=== PATIENT | female | born 1950 | race Caucasian/White ===

== ENCOUNTER 2016-07-24 11:30 | Inpatient (IN) | payer MEDICARE ==
[2016-07-26] MEDS ORDERED: ceFAZolin 1 GM in NORMAL SALINE MINI-BAG+ 100 ML IV ONE (13:09)
[2016-07-26] MEDS ORDERED: TRANEXAMIC ACID 1,000 MG in NORMAL SALINE 100 ML IV SCH (14:00)
[2016-07-29] MEDS ORDERED: TRANEXAMIC ACID 1,000 MG/10 ML VIAL IV ONE ×2 (06:53→13:00)
[2016-07-29] MEDS ORDERED: ceFAZolin 1 GM/10 ML VIAL ONE (06:53)
[2016-07-29] MEDS ORDERED: TRANEXAMIC ACID 1,000 MG in NORMAL SALINE 100 ML IV ONE ×2 (07:02→09:09)
[2016-07-29] MEDS ORDERED: LIDOCAINE HCL 1% 20 ML VIAL SUBCUT ONE ×2 (07:02→09:09)
[2016-07-29] MEDS ORDERED: METOCLOPRAMIDE HCL 10 MG/2 ML VIAL IV ONE (07:02)
[2016-07-29] MEDS ORDERED: PHENYLEPHRINE HCL 10,000 MCG/ML VIAL ONE (07:05)
[2016-07-29] MEDS ORDERED: FENTANYL 100 MCG/2 ML VIAL ONE (07:05)
[2016-07-29] MEDS ORDERED: ROCURONIUM BROMIDE 50 MG/5 ML VIAL IV ONE (07:06)
[2016-07-29] MEDS ORDERED: SUCCINYLCHOLINE CHLORIDE 200 MG/10 ML VIAL ONE (07:06)
[2016-07-29] MEDS ORDERED: TETRACAINE HCL 1% 20 MG/2 ML AMP ONE (07:06)
[2016-07-29] MEDS ORDERED: MORPHINE SULFATE/PF 10 MG/10 ML VIAL ONE ×2 (07:06→07:11)
[2016-07-29] MEDS ORDERED: EPHEDrine SULFATE 50 MG/ML VIAL ONE (07:06)
[2016-07-29] MEDS ORDERED: KETOROLAC TROMETHAMINE 30 MG/ML VIAL ONE (07:09)
[2016-07-29] MEDS ORDERED: ROPIVACAINE HCL 0.5% 30 ML ONE (07:10)
[2016-07-29] MEDS ORDERED: BACITRACIN 50,000 UNITS VIAL IM ONE (07:10)
[2016-07-29] MEDS ORDERED: BUPIVACAINE/EPI 0.25% 1 VIAL VIAL ONE (07:10)
[2016-07-29] MEDS ORDERED: NORMAL SALINE 10 ML VIAL ONE (07:10)
[2016-07-29] MEDS ORDERED: NORMAL SALINE FLUSH 30 ML ONE (07:11)
[2016-07-29] MEDS ORDERED: FAMOTIDINE IN SALINE, ISO-OSM 20 MG/50 ML PIGGYBACK IV SCH (07:15)
[2016-07-29] MEDS ORDERED: ACETAMINOPHEN 1,000 MG/100 ML VIAL IV SCH (07:15)
[2016-07-29] MEDS: MIDAZOLAM HCL 2 MG/2 ML SYR IV ONE ×2 (07:23→07:55)
[2016-07-29] MEDS ORDERED: MIDAZOLAM HCL 2 MG/2 ML VIAL ONE (07:31)
[2016-07-29] MEDS ORDERED: FAMOTIDINE IN SALINE, ISO-OSM 20 MG/50 ML PIGGYBACK IV ONE ×2 (08:00→09:09)
[2016-07-29] MEDS ORDERED: LACTATED RINGERS 1,000 ML IV SCH ×3 (08:00→10:00)
[2016-07-29] MEDS ORDERED: ACETAMINOPHEN 1,000 MG/100 ML VIAL IV ONE ×2 (08:00→09:09)
[2016-07-29] MEDS ORDERED: NALOXONE HCL 0.4 MG/ML VIAL IV PRN ×6 (09:09→11:27)
[2016-07-29] MEDS ORDERED: HYDROmorphone HCL 1 MG/ML SYR IV PRN (09:09)
[2016-07-29] MEDS ORDERED: NALBUPHINE HCL 10 MG/ML AMP IV PRN ×2 (09:09→11:27)
[2016-07-29] MEDS ORDERED: FENTANYL 100 MCG/2 ML VIAL IV PRN (09:09)
[2016-07-29] MEDS ORDERED: ONDANSETRON HCL 4 MG/2 ML VIAL IV PRN ×2 (09:09→11:27)
[2016-07-29] MEDS ORDERED: METOCLOPRAMIDE HCL 10 MG/2 ML VIAL IV PRN (09:09)
[2016-07-29] MEDS ORDERED: DIPHENHYDRAMINE 50 MG/ML VIAL IV PRN ×2 (09:09→11:27)
[2016-07-29] MEDS ORDERED: DIPHENHYDRAMINE 25 MG CAPSULE PO PRN (09:09)
[2016-07-29] MEDS ORDERED: MORPHINE SULFATE 10 MG/ML SYR IV PRN (09:09)
[2016-07-29] MEDS ORDERED: TRANEXAMIC ACID 1,000 MG in NORMAL SALINE MINI-BAG+ 100 ML IV ONE (13:00)
[2016-07-29] MEDS: TRANEXAMIC ACID 1,000 MG in NORMAL SALINE MINI-BAG+ 100 ML IV ONE ×2 (13:53→18:45)
[2016-07-29] MEDS: ceFAZolin 1 GM in NORMAL SALINE MINI-BAG+ 100 ML IV SCH ×2 (15:10→21:06)
[2016-07-29] MEDS: DIPHENHYDRAMINE 25 MG CAPSULE PO PRN ×2 (15:21→23:33)
[2016-07-29] MEDS ORDERED: BENZOCAINE/MENTHOL 1 EACH LOZENGE PO ONE ×2 (15:32→18:32)
--- NOTE | 2016-07-29 16:48 | OPERATIVE REPORT ---
DATE OF SURGERY: 07/29/16 SURGEON: Uvaldo Villafana DO ANESTHESIA: Spinal plus sedation. PREOPERATIVE DIAGNOSIS: Right knee osteoarthritis. POSTOPERATIVE DIAGNOSIS: Right knee osteoarthritis. OPERATION PERFORMED: Right total knee arthroplasty. SPECIMENS REMOVED: Diseased bone and soft tissues. ESTIMATED BLOOD LOSS: Minimal. COMPLICATIONS: None. TOTAL TOURNIQUET TIME: 83 minutes. PROCEDURE NOTE: The patient was brought to the operating room suite and after administration of spinal anesthesia the right lower extremity was prepped and draped in a sterile fashion. A well padded tourniquet was applied to the right proximal thigh. A midline longitudinal incision was made over the aspect of the right knee. Dissection was carried down to the extensor mechanism. A medial parapatellar arthrotomy was performed and soft tissue releases were performed along the deep MCL as the patient had a varus knee. The meniscus, portion of the anterior fat pad and the cruciate ligaments were also removed for visualization and instrumentation purposes. A series of bone defects were made on both the tibia and femur and a spacer was placed between the tibia and femur. An additional 2 mm of tibia was cut for the proper balancing of the knee. The remainder of the bone cuts and bone defects were made including chamfer cuts and tibia intramedullary cuts. These bone defects and bone cuts were made utilizing intramedullary femoral guide and extramedullary tibial with the appropriate angles dialed into the jigs. The trial implants were inserted, and the knee was taken through a full range of motion and was noted to be exceptionally stable and well balanced in both flexion and extension and toggle with varus and valgus. The patellar defects were made and the patellar button was placed. The prosthetic trial implants were removed, and the knee was copiously irrigated with bacitracin infused with normal saline. The patient did receive 1 gram of tranexamic acid intraoperatively and also received the cocktail containing 150 mg of ropivacaine, 15 mg of Ketoralac, 0.3 mg epinephrine, and 4 mg morphine sulfate in total volume of 60 mL, making up the difference utilizing 0.9% normal saline for a total volume of 60 mL. The knee was again copiously irrigated with bacitracin infused with normal saline and tamped dry with new lap sponges and the cement was interdigitated in the bone through finger impaction, followed by implantation and impaction of the final prosthetic implants. Excess cement was removed, and the knee was taken up into full extension with a 10 mm spacer inserted. The cement was allowed to harden and the tourniquet was let down. Any small bleeders were cauterized with an electrocautery device. A Hemovac drain was also inserted into the knee and left on suction. The knee was closed in a stepwise fashion in flexion utilizing #2 Fiberwire intermittently with #1 Vicryl pop-offs, followed by #1, 0 Vicryl, 2-0 Vicryl with a subcutaneous closure utilizing 3-0 Monocryl at the level of the skin, followed by Dermabond on the skin, followed by application of impervious Aquacel dressing. Patients knee was then wrapped with an Justin bandage and a Cryo -Cuff was applied. She was transferred from the operating room suite to the recovery room in stable condition. ORTHOPEDIC IMPLANTS 1. Biomet cobalt bone cement high viscosity with Gentamicin, Maria Teresa persona femoral component size 7 narrow cemented posterior stabilize. 2. Biomet Maria Teresa persona polyethylene button 32 mm in diameter x 8.5 mm thickness. 3. Biomet persona natural tibial cemented 5 degree stem right size C. 4. Biomet Maria Teresa persona Vivacit-E highly cross linked polyethylene articular surface fixed bearing posterior stabilized right tibial component 10 mm height. [facility]
[2016-07-29] MEDS: DOCUSATE SODIUM 100 MG CAPSULE PO SCH (20:53)
[2016-07-29] MEDS: ACETAMINOPHEN 325 MG TABLET PO PRN (20:53)
[2016-07-29] MEDS: ASCORBIC ACID 500 MG TABLET PO SCH (20:53)
[2016-07-29] MEDS: HYDROcodone/APAP 5/325 MG 1 TAB TABLET PO PRN (21:06)
[2016-07-29] MEDS: BENZOCAINE/MENTHOL 1 EACH LOZENGE PO PRN (23:29)
[2016-07-30] MEDS: BENZOCAINE/MENTHOL 1 EACH LOZENGE PO PRN ×2 (02:04→03:40)
[2016-07-30] MEDS: DEXTROSE 5% LACTATED RINGERS 1,000 ML IV SCH ×2 (02:04→19:13)
[2016-07-30] MEDS: HYDROcodone/APAP 5/325 MG 1 TAB TABLET PO PRN ×4 (02:28→18:50)
[2016-07-30] MEDS: DIPHENHYDRAMINE 25 MG CAPSULE PO PRN ×2 (04:27→08:34)
[2016-07-30] MEDS: ceFAZolin 1 GM in NORMAL SALINE MINI-BAG+ 100 ML IV SCH (05:51)
[2016-07-30 06:43] LABS: EOSINOPHILS 0.1 % (0.0-6.0); HEMOGLOBIN 9.9 g/dL (12.0-16.0); LYMPHOCYTES 7.6 % (20.0-40.0); LYMPHOCYTES# 0.7 X 10^3uL (0.8-3.8); MEAN CELL VOLUME 84.5 fL (80.0-100.0); MEAN CORPUS. HGB CONCENTRATION 34.3 g/dL (32.0-36.0); MONOCYTES 12.6 % (2.0-10.0); MONOCYTES# 1.1 X 10^3uL (0.2-1.0); NEUTROPHILS 79.7 % (54.0-75.0); NEUTROPHILS# 6.8 X 10^3uL (2.6-6.7); RED BLOOD COUNT 3.43 X 10^6uL (4.20-6.10); RED CELL DISTRIBUTION WIDTH 13.4 % (11.5-14.5); WHITE BLOOD COUNT 8.6 X 10^3uL (3.9-10.7)
[2016-07-30] MEDS: DOCUSATE SODIUM 100 MG CAPSULE PO SCH ×2 (08:30→20:08)
[2016-07-30] MEDS: BISACODYL 5 MG TABLET PO SCH (08:32)
[2016-07-30] MEDS: FOLIC ACID 1 MG TABLET PO SCH (08:33)
[2016-07-30] MEDS: ENOXAPARIN SODIUM 30 MG/0.3 ML SYR SUBCUT SCH ×2 (08:33→20:11)
[2016-07-30] MEDS: ASCORBIC ACID 500 MG TABLET PO SCH ×2 (08:34→20:10)
[2016-07-30] MEDS: MULTIVITAMINS THERAPEUTIC 1 TABLET PO SCH (08:34)
[2016-07-30] MEDS: POLYETHYLENE GLYCOL 3350 17 GM POWD.PACK PO SCH (08:34)
[2016-07-30] MEDS ORDERED: [UNRECOGNIZED DRUG - OTHER] EACHEYE SCH (09:00)
[2016-07-30] MEDS ORDERED: PHENIRAMINE OP SCH (09:00)
[2016-07-30] MEDS ORDERED: ENALAPRIL MALEATE 20 MG PO SCH (09:00)
[2016-07-30] MEDS ORDERED: NON-FORMULARY MEDICATION (Alendronate Sodium [Alendronate Sodium] 70 MG) PO SCH (09:00)
[2016-07-30] MEDS ORDERED: CARBOXYMETHYLCELLULOSE SODIUM OP SCH (09:00)
[2016-07-30] MEDS ORDERED: SODIUM CHLORIDE EACHEYE SCH (09:00)
[2016-07-30] MEDS ORDERED: DIVALPROEX SODIUM 250 MG PO SCH (09:00)
[2016-07-30] MEDS ORDERED: CALCIUM CARBONATE PO SCH (09:00)
[2016-07-30] MEDS ORDERED: NAPHAZOLINE HCL OP SCH (09:00)
[2016-07-30] MEDS ORDERED: [UNRECOGNIZED DRUG - OTHER] PO SCH (09:00)
[2016-07-30] MEDS ORDERED: VENLAFAXINE HCL 225 MG PO SCH (09:00)
[2016-07-30] MEDS ORDERED: VITAMIN D3 E PO SCH (09:00)
[2016-07-30] MEDS: AMLODIPINE BESYLATE 5 MG TABLET PO SCH (09:15)
[2016-07-30] MEDS ORDERED: PSYLLIUM SEED 1 PKT PACKET PO SCH (10:00)
[2016-07-30] MEDS: ACETAMINOPHEN 325 MG TABLET PO PRN (10:38)
[2016-07-30] MEDS: DIVALPROEX SODIUM 250 MG PO SCH ×2 (10:40→20:11)
[2016-07-30] MEDS: CALCIUM/VIT D 600 MG/400 IU 1 TAB TABLET PO SCH ×2 (10:40→20:09)
[2016-07-30] MEDS: VENLAFAXINE ER 75 MG CAPSULE PO SCH (10:41)
[2016-07-30] MEDS: PHENIRAMINE OPHTHALMIC SCH (10:42)
[2016-07-30] MEDS: NAPHAZOLINE OPHTHALMIC SCH (10:42)
[2016-07-30] MEDS ORDERED: POLYVINYL ALCOHOL 1.4% OPHTH 75 DROP/15 ML BTL ONE (10:44)
[2016-07-30] MEDS: PANTOPRAZOLE 40 MG TABLET PO SCH ×2 (10:45→20:10)
[2016-07-30] MEDS: POLYVINYL ALCOHOL 1.4% OPHTH 75 DROP/15 ML BTL EACHEYE SCH (10:46)
[2016-07-30] MEDS: ENALAPRIL MALEATE 5 MG TABLET PO SCH ×2 (10:47→20:08)
--- NOTE | 2016-07-30 12:29 | RADIOLOGY REPORT ---
Two portable views of the right knee are compared with prior films dated 2016. There has been interval right total knee arthroplasty. Components appear intact and in appropriate position. No other change is identified. IMPRESSION: Unremarkable right total knee arthroplasty. MTDD
[2016-07-30] MEDS: traZODone HCL 50 MG TABLET PO SCH (20:09)
[2016-07-31 06:24] LABS: BASOPHILS 0.2 % (0.0-2.0); LYMPHOCYTES 5.9 % (20.0-40.0); LYMPHOCYTES# 0.6 X 10^3uL (0.8-3.8); MEAN CELL VOLUME 84.9 fL (80.0-100.0); MEAN CORPUS. HGB CONCENTRATION 33.9 g/dL (32.0-36.0); MEAN CORPUSCULAR HEMOGLOBIN 28.8 pg (29.0-35.0); MONOCYTES# 0.9 X 10^3uL (0.2-1.0); NEUTROPHILS 83.9 % (54.0-75.0); NEUTROPHILS# 7.8 X 10^3uL (2.6-6.7); RED BLOOD COUNT 3.53 X 10^6uL (4.20-6.10); RED CELL DISTRIBUTION WIDTH 13.3 % (11.5-14.5); WHITE BLOOD COUNT 9.3 X 10^3uL (3.9-10.7)
[2016-07-31 06:36] LABS: HEMOGLOBIN 10.2 g/dL (12.0-16.0)
[2016-07-31] MEDS: ASCORBIC ACID 500 MG TABLET PO SCH ×2 (08:20→21:10)
[2016-07-31] MEDS: ENOXAPARIN SODIUM 30 MG/0.3 ML SYR SUBCUT SCH ×2 (08:20→21:12)
[2016-07-31] MEDS: ENALAPRIL MALEATE 5 MG TABLET PO SCH ×2 (08:20→21:11)
[2016-07-31] MEDS: ACETAMINOPHEN 325 MG TABLET PO PRN ×4 (08:24→21:20)
[2016-07-31] MEDS: MULTIVITAMINS THERAPEUTIC 1 TABLET PO SCH (08:24)
[2016-07-31] MEDS: FOLIC ACID 1 MG TABLET PO SCH (08:24)
[2016-07-31] MEDS: CALCIUM/VIT D 600 MG/400 IU 1 TAB TABLET PO SCH ×2 (08:24→21:10)
[2016-07-31] MEDS: VENLAFAXINE ER 75 MG CAPSULE PO SCH (08:24)
[2016-07-31] MEDS: AMLODIPINE BESYLATE 5 MG TABLET PO SCH (08:24)
[2016-07-31] MEDS: DOCUSATE SODIUM 100 MG CAPSULE PO SCH ×2 (08:24→21:10)
[2016-07-31] MEDS: BISACODYL 5 MG TABLET PO SCH (08:24)
[2016-07-31] MEDS: PHENIRAMINE OPHTHALMIC SCH (08:25)
[2016-07-31] MEDS: POLYETHYLENE GLYCOL 3350 17 GM POWD.PACK PO SCH (08:25)
[2016-07-31] MEDS: NAPHAZOLINE OPHTHALMIC SCH (08:25)
[2016-07-31] MEDS: PANTOPRAZOLE 40 MG TABLET PO SCH ×2 (08:26→21:11)
[2016-07-31] MEDS: DIVALPROEX SODIUM 250 MG PO SCH ×2 (08:26→21:09)
[2016-07-31] MEDS: POLYVINYL ALCOHOL 1.4% OPHTH 75 DROP/15 ML BTL EACHEYE SCH (11:34)
--- NOTE | 2016-07-31 13:29 | PROGRESS NOTE: Orthopedics ---
Orthopedic PN Subjective - Subjective Principal Diagnosis: s/p Total Knee Arthroplasty Post-op Day: 1 Interval history: Pt seen and examined at bedside on 07/30/16. Pt c/o pain now after ambulating with PTx earlier. Mostly controlled with PO analgesia. Not wanting to eat much yet. Ortho PN Objective Exam - Latest Vital Signs and I&O Latest Vital Signs/I&O: Vital Signs Temp 37.2 C 07/31/16 11:00 Pulse 80 07/31/16 11:00 Resp 28 H 07/31/16 11:00 BP 126/73 07/31/16 11:00 Pulse Ox 95 07/31/16 11:00 Intake & Output 07/30/16 07/31/16 07/31/16 17:59 05:59 17:59 Intake Total 1129 1770 Output Total 1750 400 Balance -621 1370 Intake: IV 139 1020 Right Wrist 139 1020 Oral 990 750 Output: Drainage 100 Right Knee 100 Urine 1650 400 Other: Urine Appearance Clear Clear Clear Urine Color Pale Yellow Yellow Yellow Stool Size Moderate Moderate Stool Characteristics Soft Soft Brown Brown Voiding Method Indwelling Catheter Toilet Incontinent # Voids 5 2 # Bowel Movements 2 - Post-Operative Exam Post-op Day: 1 Dressing Status: dry & intact Drainage Amount: none Distal Pulses: +2 Active Motor: intact Sensation: intact Jonnathan's sign: Negative Calf tenderness: no Weight bearing status: as tolerated - Lab Labs: Laboratory Last Values WBC 9.3 X 10^3uL (3.9-10.7) 07/31/16 05:00 RBC 3.53 X 10^6uL (4.20-6.10) L 07/31/16 05:00 Hgb 10.2 g/dL (12.0-16.0) L 07/31/16 05:00 Hct 30.0 % (36.0-48.0) L 07/31/16 05:00 MCV 84.9 fL (80.0-100.0) 07/31/16 05:00 MCH 28.8 pg (29.0-35.0) L 07/31/16 05:00 MCHC 33.9 g/dL (32.0-36.0) 07/31/16 05:00 RDW 13.3 % (11.5-14.5) 07/31/16 05:00 Plt Count 206 X 10^3uL (130-440) 07/31/16 05:00 MPV 8.0 fL (7.4-10.4) 07/31/16 05:00 Neutrophils % 83.9 % (54.0-75.0) H 07/31/16 05:00 Lymphocytes % 5.9 % (20.0-40.0) L 07/31/16 05:00 Eosinophils % 0.0 % (0.0-6.0) 07/31/16 05:00 Basophils % 0.2 % (0.0-2.0) 07/31/16 05:00 Neutrophils # 7.8 X 10^3uL (2.6-6.7) H 07/31/16 05:00 Lymphocytes # 0.6 X 10^3uL (0.8-3.8) L 07/31/16 05:00 Monocytes 10.0 % (2.0-10.0) 07/31/16 05:00 Monocytes # 0.9 X 10^3uL (0.2-1.0) 07/31/16 05:00 Eosinophils # 0.0 X 10^3uL (0.0-0.4) 07/31/16 05:00 Basophils # 0.0 X 10^3uL (0.0-0.1) 07/31/16 05:00 - Allied Health Notes Allied health notes reviewed: nursing, PT Assessment and Plan-Ortho - Date of Encounter Date of Encounter: 07/31/16 (1) S/P total knee arthroplasty Status: Acute Current Visit: Yes Quality Questions - VTE Prophylaxis Assessment VTE Present on Admission?: No Patient at risk for venous thromboembolism?: Yes VTE Risk Level: High Risk Pharmaceutical VTE prophylaxis contraindication reason: N/A- VTE prophylaxsis ordered Mechanical VTE prophylaxis contraindication reason: N/A- VTE prophylaxsis ordered (1) S/P total knee arthroplasty Qualifiers: Laterality: right Qualified Code(s): Z96.651 - Presence of right artificial knee joint
--- NOTE | 2016-07-31 13:32 | PROGRESS NOTE: Orthopedics ---
Orthopedic PN Subjective - Subjective Principal Diagnosis: s/p Total Knee Arthroplasty Post-op Day: 2 Interval history: Pt doing much better today. Working well with PT. Still not wanting to eat much. Mccoy out. HMV d/c spontaneously yesterday. Pain controlled with PO analgesia. Ortho PN Objective Exam - Latest Vital Signs and I&O Latest Vital Signs/I&O: Vital Signs Temp 37.2 C 07/31/16 11:00 Pulse 80 07/31/16 11:00 Resp 28 H 07/31/16 11:00 BP 126/73 07/31/16 11:00 Pulse Ox 95 07/31/16 11:00 Intake & Output 07/30/16 07/31/16 07/31/16 17:59 05:59 17:59 Intake Total 1129 1770 Output Total 1750 400 Balance -621 1370 Intake: IV 139 1020 Right Wrist 139 1020 Oral 990 750 Output: Drainage 100 Right Knee 100 Urine 1650 400 Other: Urine Appearance Clear Clear Clear Urine Color Pale Yellow Yellow Yellow Stool Size Moderate Moderate Stool Characteristics Soft Soft Brown Brown Voiding Method Indwelling Catheter Toilet Incontinent # Voids 5 2 # Bowel Movements 2 07/31/16 13:31 - Post-Operative Exam Dressing Status: dry & intact Drainage Amount: none Distal Pulses: +2 Active Motor: intact Sensation: intact Jonnathan's sign: Negative Calf tenderness: no Weight bearing status: as tolerated - Lab Labs: Laboratory Last Values WBC 9.3 X 10^3uL (3.9-10.7) 07/31/16 05:00 RBC 3.53 X 10^6uL (4.20-6.10) L 07/31/16 05:00 Hgb 10.2 g/dL (12.0-16.0) L 07/31/16 05:00 Hct 30.0 % (36.0-48.0) L 07/31/16 05:00 MCV 84.9 fL (80.0-100.0) 07/31/16 05:00 MCH 28.8 pg (29.0-35.0) L 07/31/16 05:00 MCHC 33.9 g/dL (32.0-36.0) 07/31/16 05:00 RDW 13.3 % (11.5-14.5) 07/31/16 05:00 Plt Count 206 X 10^3uL (130-440) 07/31/16 05:00 MPV 8.0 fL (7.4-10.4) 07/31/16 05:00 Neutrophils % 83.9 % (54.0-75.0) H 07/31/16 05:00 Lymphocytes % 5.9 % (20.0-40.0) L 07/31/16 05:00 Eosinophils % 0.0 % (0.0-6.0) 07/31/16 05:00 Basophils % 0.2 % (0.0-2.0) 07/31/16 05:00 Neutrophils # 7.8 X 10^3uL (2.6-6.7) H 07/31/16 05:00 Lymphocytes # 0.6 X 10^3uL (0.8-3.8) L 07/31/16 05:00 Monocytes 10.0 % (2.0-10.0) 07/31/16 05:00 Monocytes # 0.9 X 10^3uL (0.2-1.0) 07/31/16 05:00 Eosinophils # 0.0 X 10^3uL (0.0-0.4) 07/31/16 05:00 Basophils # 0.0 X 10^3uL (0.0-0.1) 07/31/16 05:00 - Allied Health Notes Allied health notes reviewed: nursing, PT Assessment and Plan-Ortho - Date of Encounter Date of Encounter: 07/31/16 (1) S/P total knee arthroplasty Status: Acute Assessment and plan: Pt will continue with PT. Analgesia. DVT PPx. Done with ABX PPx. Encourage PO intake. Incentive spirometry, ambulation and coughing have helped with likely atelectasis. Current Visit: Yes (1) S/P total knee arthroplasty Qualifiers: Laterality: right Qualified Code(s): Z96.651 - Presence of right artificial knee joint
[2016-07-31] MEDS: traZODone HCL 50 MG TABLET PO SCH (21:11)
[2016-08-01 06:17] LABS: BASOPHILS 0.2 % (0.0-2.0); EOSINOPHILS 0.7 % (0.0-6.0); LYMPHOCYTES 12.6 % (20.0-40.0); LYMPHOCYTES# 0.7 X 10^3uL (0.8-3.8); MEAN CELL VOLUME 84.7 fL (80.0-100.0); MEAN CORPUS. HGB CONCENTRATION 33.3 g/dL (32.0-36.0); MEAN CORPUSCULAR HEMOGLOBIN 28.2 pg (29.0-35.0); MEAN PLATELET VOLUME 7.8 fL (7.4-10.4); MONOCYTES 11.2 % (2.0-10.0); MONOCYTES# 0.7 X 10^3uL (0.2-1.0); NEUTROPHILS 75.3 % (54.0-75.0); NEUTROPHILS# 4.4 X 10^3uL (2.6-6.7); RED BLOOD COUNT 3.31 X 10^6uL (4.20-6.10); WHITE BLOOD COUNT 5.8 X 10^3uL (3.9-10.7)
[2016-08-01 06:31] VITALS: BP 129/71; PULSE 98; RESP 20; TEMP 99.7
[2016-08-01 06:38] LABS: HEMOGLOBIN 9.3 g/dL (12.0-16.0)
[2016-08-01] MEDS: ENOXAPARIN SODIUM 30 MG/0.3 ML SYR SUBCUT SCH (08:46)
[2016-08-01] MEDS: ENALAPRIL MALEATE 5 MG TABLET PO SCH (08:46)
[2016-08-01] MEDS: PANTOPRAZOLE 40 MG TABLET PO SCH (08:46)
[2016-08-01] MEDS: AMLODIPINE BESYLATE 5 MG TABLET PO SCH (08:46)
[2016-08-01] MEDS: BISACODYL 5 MG TABLET PO SCH (08:48)
[2016-08-01] MEDS: VENLAFAXINE ER 75 MG CAPSULE PO SCH (08:48)
[2016-08-01] MEDS: DOCUSATE SODIUM 100 MG CAPSULE PO SCH (08:48)
[2016-08-01] MEDS: FOLIC ACID 1 MG TABLET PO SCH (08:48)
[2016-08-01] MEDS: CALCIUM/VIT D 600 MG/400 IU 1 TAB TABLET PO SCH (08:48)
[2016-08-01] MEDS: ASCORBIC ACID 500 MG TABLET PO SCH (08:48)
[2016-08-01] MEDS: MULTIVITAMINS THERAPEUTIC 1 TABLET PO SCH (08:48)
[2016-08-01] MEDS: DIVALPROEX SODIUM 250 MG PO SCH (08:52)
[2016-08-01] MEDS: POLYETHYLENE GLYCOL 3350 17 GM POWD.PACK PO SCH (08:55)
[2016-08-01] MEDS: PHENIRAMINE OPHTHALMIC SCH (08:57)
[2016-08-01] MEDS: NAPHAZOLINE OPHTHALMIC SCH (08:57)
[2016-08-01] MEDS: POLYVINYL ALCOHOL 1.4% OPHTH 75 DROP/15 ML BTL EACHEYE SCH (08:57)
--- NOTE | 2016-08-01 10:57 | DC SUMMARY: Orthopedic Note ---
Discharge Summary: Surg/OB Provider: Date of Admission: 07/29/16 Admitting Provider: RABIA GOLDSMITH DO Attending Provider: RABIA GOLDSMITH DO Discharging Provider: RABIA GOLDSMITH DO Primary Care Provider: Discharge Date: 08/01/16 - Diagnosis (1) S/P total knee arthroplasty Status: Acute Qualifiers: Laterality: right Qualified Code(s): Z96.651 - Presence of right artificial knee joint Hospital Course: Ms. REYES is a 65 year old female who underwent a right total knee arthroplasty on 29 July. She received appropriate postoperative DVT and antibiotic prophylaxis. She did have a fever in the evening following her surgery, but with incentive spirometry and coughing and ambulation her atelectasis resolved. She is ambulating and transferring well. Her pain is well-controlled. Discharge - Patient/Caregiver Discharge Instructions Activity Level: WBAT Diet: reg Follow up: RABIA GOLDSMITH DO [ACTIVE (Staff Physician)] - 08/06/16 11:00 am Overall discharge status: patient is progressing back to baseline Home Medications: Enoxaparin Sodium [LOVENOX 30mg/0.3mL*] 30 mg SUBCUT BID #11 syr oxyCODONE HCL/ACETAMINOPHEN [Percocet 5-325 mg Tablet] 1 - 2 each PO Q6H #60 tablet Disposition: HOME, SELF-CARE Orthopedic: Discharge Phy Exam - Latest Vital Signs and I&O Latest Vital Signs/I&O: Vital Signs Temp 37.6 C H 08/01/16 06:24 Pulse 98 H 08/01/16 06:24 Resp 20 08/01/16 06:24 BP 129/71 08/01/16 06:24 Pulse Ox 94 08/01/16 06:24 Intake & Output 07/31/16 08/01/16 08/01/16 17:59 05:59 17:59 Intake Total 820 510 Output Total 1900 100 Balance -1080 410 Intake: IV 10 Right Wrist 10 Oral 820 500 Output: Urine 1900 100 Other: Urine Appearance Clear Cloudy Urine Color Pale Light Danna Yellow Stool Size Moderate Stool Characteristics Soft Brown Voiding Method Toilet Toilet # Voids 2 1 # Bowel Movements 0 08/01/16 10:57 - Post-Operative Exam Post-op Day: 3 Dressing Status: dry & intact Drainage Amount: none Distal Pulses: +2 Active Motor: intact Sensation: intact Jonnathan's sign: Negative Calf tenderness: no Weight bearing status: as tolerated - Allied Health Notes Allied health notes reviewed: nursing, PT Discharge Summary Data - Medication History Medication History: Home Medications Alendronate Sodium 70 mg PO WEEKLY 07/27/16 Amlodipine Besylate [Norvasc*] 10 mg PO DAILY 07/27/16 Carboxymethylcellulose Sodium [Refresh Tears] 1 ml OP DAILY 07/27/16 Enalapril Maleate [Vasotec] 20 mg PO BID 07/27/16 Pantoprazole [Pantoprazole Sodium*] 20 mg PO BID 07/27/16 Sodium Chloride [Elizabeth-128] 1 ml OP DAILY 07/27/16 Venlafaxine HCl [Venlafaxine HCl ER] 225 mg PO DAILY 07/27/16 aspirin CHEW [Aspirin Chew*] 81 mg PO DAILY 07/27/16 traZODone HCL [Trazodone HCl*] 150 mg PO HS 07/27/16 Calcium Carbonate/Vitamin D3 [Calcium 600 + Vit D 400 Tablet] 1 each PO BID Divalproex Sodium [Depakote] 250 mg PO BID 07/29/16 Naphazoline HCl/Pheniramine [Opcon-A Eye Drops] 15 ml OP DAILY 07/29/16 [place]-3/Dha/Epa/Fish Oil [Fish Oil Conc 1,000 mg Softgel] 1,000 mg PO DAILY Inpatient Medications 07/29/16 11:27 Acetaminophen [Tylenol] 325 - 650 mg PO Q4H PRN Dextrose 5% Lactated Ringers [D5 Lr 1000 ml] 1,000 ml IV CONT HYDROcodone/APAP 5/325 MG [Merced] 2 tab PO Q3H PRN Ondansetron HCl [Zofran] 4 mg IV Q4H PRN oxyCODONE HCL IR [Oxy Ir] 5 - 10 mg PO Q3H PRN 07/29/16 19:33 Benzocaine/Menthol [Cepacol Sorethroat Lozenges] 1 each PO PRN PRN 07/29/16 21:00 Ascorbic Acid [Vitamin C] 500 mg PO BID Docusate Sodium [Colace] 100 mg PO BID 07/30/16 09:00 Alendronate Sodium [Alendronate Sodium] 70 mg PO WEEKLY Amlodipine Besylate [Norvasc] 10 mg PO DAILY Bisacodyl [Dulcolax] 10 mg PO DAILY Divalproex Sodium [Depakote] 250 mg PO BID Enoxaparin Sodium [Lovenox] 30 mg SUBCUT BID Folic Acid [Folate] 1 mg PO DAILY Multivitamins,Therapeutic [Thera] 1 tab PO DAILY Pantoprazole [Protonix] 20 mg PO BID Polyethylene Glycol 3350 [miraLAX] 17 gm PO DAILY 07/30/16 10:00 Calcium/Vit D 600 mg/400 Iu [Calcium 600/Vitamin D 400] 1 tab PO BID Enalapril Maleate [Vasotec] 20 mg PO BID Naphazoline/Pheniramine Ophth [Naphcon A Ophth] 1 drop OPHTHALMIC DAILY Venlafaxine ER [Effexor Xr] 225 mg PO DAILY 07/30/16 21:00 traZODone HCL [Desyrel] 150 mg PO HS 07/31/16 10:00 Polyvinyl Alcohol 1.4% Ophth [Teargen] 1 drop EACHEYE DAILY Procedures and tests throughout hospitalization: Completed Lab Orders 07/30/16 05:00 CBC AUTO DIF, MDIF/RMOR IF IND [HEM] AMDRAW 07/31/16 05:00 CBC AUTO DIF, MDIF/RMOR IF IND [HEM] AMDRAW 08/01/16 05:00 CBC AUTO DIF, MDIF/RMOR IF IND [HEM] AMDRAW Completed Imaging Orders 07/29/16 11:27 KNEE; 1 [place] [address] [place] [id number] [RAD] Routine Pending Orders 07/26/16 13:09 Insert Peripheral IV ONCE NPO After midnight 0000 PreOp Shave with Clippers ONCE Resuscitation Status Routine 07/29/16 07:02 Insert Peripheral IV ONCE 07/29/16 09:09 Osbaldo hugger if temp <34 C PRN Did pt have a spinal/epidural? . Maintain IV access post spinal CONTINUOUS Monitor End Tidal CO2 CONTINUOUS Narcan @ bedside x24h after sp .x24hrs Notify Anesthesia . Oxygen by Nasal Cannula TITRATE TO >90% Titrate Oxygen TITRATE B/W 90-95% Vital Signs Q1HX12,Q2H Warm blankets if temp<36 C PRN 07/29/16 11:27 Admit: Inpatient Routine Activity: Ambulate with Assist TID Activity: BRP w/ Assist Only . Activity: FWB USE WALKER Activity: Knee Extension . Apply ice to affected area PRN Clinical Pathway: updt in cht QSHIFT Did pt have a spinal/epidural? . Incentive Spirometry Q1H Intake and Output QSHIFT I&O Maintain IV access post spinal CONTINUOUS Narcan @ bedside x24h after sp .x24hrs Notify Physician . Oxygen by Nasal Cannula TITRATE TO >90% Sequential Compression Device WHILE IN BED RABIA Hose CONTINUOUS Turn, Cough, and Deep Breathe Q2H Vital Signs ROUTINE VITALS (Q4H) Ceramic Design Engineer Consult [CM] Routine OCCULT BLOOD (1-3 SAMPLES) [RM] Acetaminophen [Tylenol] 325 - 650 mg PO Q4H PRN Dextrose 5% Lactated Ringers [D5 Lr 1000 ml] 1,000 ml IV CONT HYDROcodone/APAP 5/325 MG [Merced] 2 tab PO Q3H PRN Ondansetron HCl [Zofran] 4 mg IV Q4H PRN oxyCODONE HCL IR [Oxy Ir] 5 - 10 mg PO Q3H PRN 07/29/16 19:33 Benzocaine/Menthol [Cepacol Sorethroat Lozenges] 1 each PO PRN PRN 07/29/16 21:00 Ascorbic Acid [Vitamin C] 500 mg PO BID Docusate Sodium [Colace] 100 mg PO BID 07/29/16 Lunch Regular [DIET] 07/30/16 09:00 Alendronate Sodium [Alendronate Sodium] 70 mg PO WEEKLY Amlodipine Besylate [Norvasc] 10 mg PO DAILY Bisacodyl [Dulcolax] 10 mg PO DAILY Divalproex Sodium [Depakote] 250 mg PO BID Enoxaparin Sodium [Lovenox] 30 mg SUBCUT BID Folic Acid [Folate] 1 mg PO DAILY Multivitamins,Therapeutic [Thera] 1 tab PO DAILY Pantoprazole [Protonix] 20 mg PO BID Polyethylene Glycol 3350 [miraLAX] 17 gm PO DAILY 07/30/16 10:00 Calcium/Vit D 600 mg/400 Iu [Calcium 600/Vitamin D 400] 1 tab PO BID Enalapril Maleate [Vasotec] 20 mg PO BID Naphazoline/Pheniramine Ophth [Naphcon A Ophth] 1 drop OPHTHALMIC DAILY Venlafaxine ER [Effexor Xr] 225 mg PO DAILY 07/30/16 11:00 Physical Therapy Eval and Treatment [PT] Routine 07/30/16 21:00 traZODone HCL [Desyrel] 150 mg PO HS 07/31/16 10:00 Polyvinyl Alcohol 1.4% Ophth [Teargen] 1 drop EACHEYE DAILY Labs on day of discharge: Labs from last 24 hours 08/01/16 05:00 WBC 5.8 RBC 3.31 L Hgb 9.3 L Hct 28.0 L MCV 84.7 MCH 28.2 L MCHC 33.3 RDW 13.0 Plt Count 230 MPV 7.8 Neutrophils % 75.3 H Lymphocytes % 12.6 L Eosinophils % 0.7 Basophils % 0.2 Neutrophils # 4.4 Lymphocytes # 0.7 L Monocytes 11.2 H Monocytes # 0.7 Eosinophils # 0.0 Basophils # 0.0 - Impressions She will follow up in my office in about 8-10 days. Lovenox and Rabia's for DVT PPx. Percocet oral analgesia.
[2016-08-01 11:14] VITALS: O2SAT 96
[2016-08-01] MEDS: ACETAMINOPHEN 325 MG TABLET PO PRN (12:06)
--- NOTE | 2016-08-06 14:58 | PREOPERATIVE H&P ---
History of Present Illness (Uvaldo Villafana DO; 07/11/2016 11:05 AM) The patient is a 65 year old female. Patient is here for preoperative visit for her right total knee arthroplasty. The patient is having a lot of pain with ambulation. 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) Hip (-2.5) and femoral neck (-4.5)- FU BMD due 2017 Depression (F32.9) Postmenopausal status (Z78.0) Primary osteoarthritis of both knees (M17.0) IT band syndrome, left (M76.32) Anxiety (F41.9) Hypertension, benign (I10) Microalbuminuria (R80.9) Migraine (346.90) (G43.909) Snoring (R06.83) Gastroesophageal reflux disease with esophagitis (K21.0) Tension headache (G44.209) Colon polyps (K63.5) Obesity (BMI 30-39.9) (E66.9) Osteoarthritis of right knee (M17.11) Allergies (Shaunna Solorzano RN; 07/11/2016 10:39 AM) No Known Drug [id number]/31/2014 Family History (Shaunna Solorzano RN; 07/11/2016 10:39 AM) Father late 80s. History of macular degeneration. Mother Dementia (90s). History of glaucoma. Grandmother brain cancer, in her 90s Maternal Grandfather bone cancer Social History (Uvaldo Villafana DO; 07/11/2016 11:05 AM) Alcohol Use Drinks wine. 5 glasses of wine per week. Tobacco Use On and off tobacco use. Has not smoked for the last 2 months. 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 Vehicle Driving Yes. Living Situation Condo Medication History (Shaunna Solorzano RN; 07/11/2016 10:39 AM) Enalapril Maleate (20MG Tablet, 1 Oral two times daily, Taken starting 2016) Active. AmLODIPine Besylate (10MG Tablet, 1 Oral daily, Taken starting 04/22/2016) Active. Pantoprazole Sodium (20MG Tablet DR, 1 (one) Oral 1 po twice daily, Taken starting 11/04/2015) Active. TraZODone HCl (100MG Tablet, 1.5 Oral daily, Taken starting 12/31/2015) Active. Divalproex Sodium (250MG Tablet DR, 1 (one) Oral twice daily, Taken starting ) Active. Venlafaxine HCl ER (150MG Capsule ER 24HR, 1 Oral daily, Taken starting 2015) Active. Alendronate Sodium (70MG Tablet, 1 (one) Oral 1 po weekly, Taken starting 02/11) Active. Cyclobenzaprine HCl (5MG Tablet, 1 (one) Tablet Oral 1 po qhs prn muscle pain, Taken starting 12/20/2015) Active. Probiotic Formula (Oral daily) Active. Elizabeth 128 (5% Solution, Ophthalmic) Active. Refresh (1% Solution, Ophthalmic) Active. Vitamin B12 TR (1 Oral daily) Specific dose unknown - Active. (gummies) Calcium-Vitamin D (Oral two times daily) Specific dose unknown - Active. Fish Oil (Oral) Specific dose unknown - Active. Aspirin Low Strength (81MG Tablet Chewable, Oral daily) Active. Medications Reconciled Past Surgical History (Uvaldo Villafana DO; 07/11/2016 11:05 AM) Arthroscopy of Knee Bilateral. meniscal ganglion cyst left hand Shea's neuroma of right foot (G57.61) x 2. Health Maintenance History (Uvaldo Villafana DO; 07/11/2016 11:05 AM) Pap [id number] Normal. DEXA 2014 Osteoporosis [id number] Polyp- tubular adenoma, repeat 5 years. Diverticulosis/ internal hemorrhoids [id number]/2016 Normal. Bi-Rads 1 Other Problems (Uvaldo Villafana DO; 07/11/2016 11:05 AM) Diverticulitis, colon (K57.32) Knee pain, bilateral (M25.561, M25.562) Need for Screening Mammogram (V76.12) (Z12.31) Health education/counseling (Z71.89) Encounter for immunization (Z23) Encounter for routine adult health examination with abnormal findings (Z00.01) Review of Systems (Uvaldo Villafana DO; 07/11/2016 11:05 AM) General Not Present- Chills and Fever. Skin Not Present- Erythema, Skin Color Changes and Skin Problems. HEENT Not Present- Sleep Apnea. Neck Not Present- Neck Pain. Respiratory Not Present- Cough and Shortness of Breath. Cardiovascular Not Present- Chest Pain, Difficulty Breathing On Exertion, Fainting and Leg Pain and/or Swelling. Gastrointestinal Not Present- Abdominal Pain, Nausea and Vomiting. Female Genitourinary Not Present- Painful Urination. Musculoskeletal Not Present- Decreased Range of Motion, Joint Pain, Joint Stiffness, Joint Swelling, Muscle Pain and Muscle Weakness. Neurological Not Present- Dizziness, Focal Neurological Symptoms, Numbness in extremities, Trouble walking and Weakness. Psychiatric Not Present- Anorexia, Anxiety and Depression. Endocrine Not Present- Weight Loss. Hematology Not Present- Bleeding Problems, DVT and Easy Bruising. Vitals (Shaunna Solorzano RN; 07/11/2016 10:37 AM) 07/11/2016 10:36 AM Weight: 187.8 lb Height: 59in Body Surface Area: 1.8 m Body Mass Index: 37.93 kg/m Temp.: 97.4F Pulse: 76 (Regular) Resp.: 16 (Unlabored) BP: 120/78 (Sitting, Left Arm, Standard) Physical Exam (Uvaldo Villafana DO; 07/11/2016 11:05 AM) Physical examination of the right knee demonstrates intact skin. Normal sensation and adequate perfusion. Painful range of motion. Plain film x-rays with orthogonal views of the right knee demonstrates severe arthritic changes with joint space narrowing, subchondral sclerosis, osteophyte formation and varus deformity. Assessment & Plan (Uvaldo Villafana DO; 07/11/2016 11:06 AM) Osteoarthritis of right knee (M17.11) Impression: After educating the patient regarding treatment options with their associated risks and benefits, the patient elected to proceed with surgical treatment of the injury/pathology with RIGHT TOTAL KNEE ARTHROPLASTY. The risks and benefits of the specific procedure were explained and all questions and concerns were addressed and answered. Post operative rehabilitation requirements and expectations for optimal outcome were reviewed and the patient confirmed understanding these and committed to compliance. All questions answered. The patient will be optimized medically by consultation with their primary care physician prior to their procedure. Signed by Uvaldo Villafana DO (07/11/2016 11:06 AM) NIR[facility]
== END 2016-08-01 11:13 | disposition home or self-care (01) | DRG 470 ==
LOC: IN 07-29 05:54
PROVIDERS: ADMIT Orthopaedic Surgery; ATTEND Orthopaedic Surgery
PROC: 0SRC0J9 Replacement of Right Knee Joint with Synthetic Substitute, Cemented, Open Approach (ICD-10-PCS; principal; 2016-07-29)
DX: M17.11 Unilateral primary osteoarthritis, right knee (principal); F32.9 Major depressive disorder, single episode, unspecified; R94.5 Abnormal results of liver function studies; M81.0 Age-related osteoporosis without current pathological fracture; M76.32 Iliotibial band syndrome, left leg; I10 Essential (primary) hypertension; R80.9 Proteinuria, unspecified; G43.909 Migraine, unspecified, not intractable, without status migrainosus; K21.9 Gastro-esophageal reflux disease without esophagitis; G44.209 Tension-type headache, unspecified, not intractable; E66.9 Obesity, unspecified; Z79.899 Other long term (current) drug therapy
CPT/HCPCS: 36415; 85025; 93005; C1776; J0171; J0690; J1650; J1885; J2250; J2370; J2765; J2795; Q0163